=== PATIENT | male | born 1960 | race Caucasian/White ===

== ENCOUNTER 2021-03-10 21:25 | Inpatient (IN) | payer OTHER ==
[~2021-03-10] VITALS: Ht 180.3 cm; Wt 90.7 kg
--- NOTE | 2021-03-10 21:48 | NUR ---
PT BIBA. PER EMS PT HAD LEFT HIP REPLACEMENT ON SATURDAY, 2 CARDIAC STENTS PLACED & CARDIOVERSION ON SATURDAY, AND STARTED FEELING HEARTBURN/ NAUSEA/ VOMITTING TONIGHT AT 2099. PER EMS PT RECIEVED 324 ASA, 1 NITRO, 4MG OF ZOFRAN AND 300ML NS. AFTER 1 NITRO PT'S BP DROPPED FROM 120S/80S TO 80S/50S. PT BP CURRENTLY 129/76. PT RESTING IN [facility], MONITORING IN PLACE, EKG DONE, AT BEDSIDE, SILAS ALLISON AT BEDSIDE FOR EVAL, WCTM.
[2021-03-10] MEDS ORDERED: OMNIPAQUE 350 MG/ML, 100ML BOTTLE ONE (22:00)
[2021-03-10] MEDS ORDERED: SODIUM CHLORIDE FLUSH 10ML SYR IVF ONE (22:00)
[2021-03-10] MEDS ORDERED: FAMOTIDINE 20 MG/2 ML IVPush ONE (22:00)
[2021-03-10] MEDS ORDERED: MAALOX/HYOSCYAMINE/LIDOCAINE 45 ML BTL PO ONE (22:00)
[2021-03-10] MEDS ORDERED: PROMETHAZINE 25 MG/ML, 1ML IM ONE (22:00)
[2021-03-10] MEDS ORDERED: FAMOTIDINE 20 MG/2 ML ONE (22:08)
[2021-03-10] MEDS ORDERED: PROMETHAZINE 25 MG/ML, 1ML ONE (22:08)
[2021-03-10] MEDS ORDERED: MAALOX/HYOSCYAMINE/LIDOCAINE 45 ML BTL ONE (22:08)
[2021-03-10 22:16] LABS: BASOPHILS % (AUTO) 1 % (0-1); EOSINOPHILS % (AUTO) 1 % (1-7); LYMPHOCYTES % (AUTO) 12 % (22-44); MEAN CORPUSCULAR HEMOGLOBIN 30.3 pg (27.5-34.5); MEAN CORPUSCULAR HGB CONC 34.5 g/dL (33.2-36.2); MEAN PLATELET VOLUME 7.1 fL (7.4-10.4); MONOCYTES % (AUTO) 9 % (2-9); NEUTROPHILS % (AUTO) 78 % (42-75); PLATELET COUNT 349 x10^3/uL (130-400); RED BLOOD COUNT 3.46 x10^6/uL (4.38-5.82); RED CELL DISTRIBUTION WIDTH 13.2 % (9.4-14.8)
[2021-03-10 22:18] LABS: MD NO
[2021-03-10 22:23] LABS: ALANINE AMINOTRANSFERASE 49 U/L (12-78); ALBUMIN 2.8 g/dL (3.4-5.0); ANION GAP 7 mmol/L (5-15); CALCIUM 8.5 mg/dL (8.5-10.1); CHLORIDE 102 mmol/L (98-107); CREATININE 0.94 mg/dL (0.7-1.3)
[2021-03-10 22:28] LABS: ALKALINE PHOSPHATASE 57 U/L (45-117); BILIRUBIN,TOTAL 0.6 mg/dL (0.2-1.0)
[2021-03-10 23:22] LABS: INTERNATIONAL NORMALIZED RATIO 0.96 (0.93-1.1); PROTHROMBIN TIME 10.3 Seconds (9.6-11.5)
--- NOTE | 2021-03-11 01:19 | NUR ---
REPORT FROM JENNIFER URIARTE. PT REQUESTING TO SIT AT EDGE OF BED, AT BEDSIDE SITTING WITH PT. WAITING FOR ADMIT ORDERS
--- NOTE | 2021-03-11 01:33 | NUR ---
PT UP TO STANDING SCALE, WEIGHT 89 KG. PHARMACY AWARE
[2021-03-11] MEDS ORDERED: ENOXAPARIN 80 MG/0.8 ML ONE (01:51)
[2021-03-11] MEDS ORDERED: ENOXAPARIN 80 MG/0.8 ML SQ ONE (02:00)
[2021-03-11] MEDS ORDERED: ENOX40SY4 SQ (02:12)
[2021-03-11] MEDS ORDERED: PRAS10TA4 PO (02:12)
[2021-03-11] MEDS ORDERED: hydrALAzine 20 MG/ML, 1ML IVPush PRN (02:30)
[2021-03-11] MEDS ORDERED: SODIUM CHLORIDE 0.9% 1,000 ML IV SCH (02:30)
[2021-03-11] MEDS ORDERED: ONDANSETRON 2MG/ML, 2ML IVPush PRN (02:30)
[2021-03-11] MEDS ORDERED: ONDANSETRON ODT 4 MG PO PRN (02:30)
[2021-03-11] MEDS ORDERED: ACETAMINOPHEN 325 MG TABLET PO PRN (02:30)
[2021-03-11] MEDS ORDERED: NITROGLYCERIN 0.4 MG BOTTLE (25 TABS) SL PRN (02:30)
[2021-03-11] MEDS ORDERED: POLYETHYLENE GLYCOL 17 GM PACKET PO PRN (02:30)
[2021-03-11] MEDS ORDERED: GABAPENTIN 300 MG CAPSULE PO SCH (02:30)
[2021-03-11] MEDS ORDERED: BISACODYL 10 MG SUPP PR PRN (02:30)
[2021-03-11] MEDS ORDERED: PROMETHAZINE 25 MG/ML, 1ML IM PRN (02:30)
[2021-03-11] MEDS ORDERED: OXYcodone IR 5MG TABLET PO PRN (02:30)
[2021-03-11 03:05] VITALS: BP 121/85
[2021-03-11] MEDS: PANTOPRAZOLE 40 MG IV IVPush SCH ×2 (03:25→14:46)
[2021-03-11] MEDS ORDERED: GABA600T7 PO (04:30)
[2021-03-11] MEDS ORDERED: METF10007 PO (04:30)
[2021-03-11] MEDS ORDERED: DIPHENHYDRAMINE 25 MG CAPSULE PO ONE (05:00)
[2021-03-11] MEDS: ASPIRIN 81 MG TABLET EC PO SCH (05:03)
[2021-03-11] MEDS: CARVEDILOL 6.25 MG TABLET PO SCH ×2 (05:04→17:58)
[2021-03-11 05:23] LABS: BASOPHILS % (AUTO) 1 % (0-1); EOSINOPHILS % (AUTO) 1 % (1-7); LYMPHOCYTES % (AUTO) 19 % (22-44); MEAN CORPUSCULAR HEMOGLOBIN 30.9 pg (27.5-34.5); MEAN CORPUSCULAR HGB CONC 34.6 g/dL (33.2-36.2); MEAN PLATELET VOLUME 7.3 fL (7.4-10.4); MONOCYTES % (AUTO) 12 % (2-9); NEUTROPHILS % (AUTO) 68 % (42-75); PLATELET COUNT 341 x10^3/uL (130-400); RED CELL DISTRIBUTION WIDTH 13.1 % (9.4-14.8)
[2021-03-11 05:27] LABS: MD NO
[2021-03-11 05:35] LABS: CHLORIDE 103 mmol/L (98-107)
[2021-03-11 05:46] LABS: ALANINE AMINOTRANSFERASE 46 U/L (12-78); ALBUMIN 2.7 g/dL (3.4-5.0); ALKALINE PHOSPHATASE 53 U/L (45-117); ANION GAP 9 mmol/L (5-15); BILIRUBIN,TOTAL 0.6 mg/dL (0.2-1.0); CALCIUM 8.4 mg/dL (8.5-10.1); CHOL/HDL RATIO 6.2; CHOLESTEROL, TOTAL 192 mg/dL (140-239); CREATININE 0.83 mg/dL (0.7-1.3); HDL CHOL % 16 % (26-37); HDL CHOLESTEROL (DIRECT) 31 mg/dL (40-60); LDL CHOLESTEROL,CALCULATED 115 mg/dL (54-169); LDL/HDL RATIO 3.7 (0.5-3.0); TOTAL PROTEIN 6.6 g/dL (6.4-8.2); TRIGLYCERIDES 229 mg/dL (50-200); VLDL CHOLESTEROL 46 mg/dL (0-25)
[2021-03-11] MEDS ORDERED: ASPIRIN 325 MG TABLET EC PO SCH (06:00)
[2021-03-11] MEDS: INSULIN LISPRO 100 UNITS/ML, PEN SQ-INSULIN SCH ×5 (07:00→21:03)
[2021-03-11 07:47] VITALS: BP 121/77
[2021-03-11] MEDS: PRASUGREL 10 MG TABLET PO SCH (09:55)
[2021-03-11] MEDS: GABAPENTIN 400 MG CAPSULE PO SCH ×3 (09:56→21:02)
[2021-03-11] MEDS: SENNA/DOCUSATE TABLET PO SCH (09:56)
[2021-03-11] MEDS ORDERED: LISI2.5T PO (10:03)
[2021-03-11] MEDS: LISINOPRIL 5 MG TABLET PO SCH (10:30)
[2021-03-11 14:35] VITALS: BP 106/65
[2021-03-11 19:20] VITALS: BP 120/74
[2021-03-11] MEDS ORDERED: DIPHENHYDRAMINE 25 MG CAPSULE PO PRN (21:00)
[2021-03-11] MEDS: ENOXAPARIN 30 MG/0.3 ML SQ SCH (21:00)
[2021-03-11] MEDS ORDERED: DIPHENHYDRAMINE 25 MG CAPSULE ONE (21:00)
[2021-03-11] MEDS ORDERED: ATORVASTATIN 40 MG TABLET PO SCH (21:00)
[2021-03-12] MEDS: PANTOPRAZOLE 40 MG IV IVPush SCH (01:42)
[2021-03-12 02:00] VITALS: BP 106/67
[2021-03-12] MEDS: ASPIRIN 81 MG TABLET EC PO SCH (06:24)
[2021-03-12] MEDS: CARVEDILOL 6.25 MG TABLET PO SCH (06:25)
[2021-03-12 08:02] VITALS: BP 106/69
[2021-03-12] MEDS: INSULIN LISPRO 100 UNITS/ML, PEN SQ-INSULIN SCH ×2 (08:55→11:45)
[2021-03-12] MEDS: ENOXAPARIN 30 MG/0.3 ML SQ SCH (08:57)
[2021-03-12] MEDS: SENNA/DOCUSATE TABLET PO SCH (08:57)
[2021-03-12] MEDS: LISINOPRIL 5 MG TABLET PO SCH (08:58)
[2021-03-12] MEDS: PRASUGREL 10 MG TABLET PO SCH (08:58)
[2021-03-12] MEDS: GABAPENTIN 400 MG CAPSULE PO SCH (08:58)
[2021-03-12] MEDS ORDERED: CARV6.2512 PO (12:28)
[2021-03-12] MEDS ORDERED: ASPI81TA45 PO (12:28)
[2021-03-12] MEDS ORDERED: ATOR40TA78 PO (12:28)
== END 2021-03-12 14:35 | disposition home or self-care (01) | DRG 282 ==
LOC: EDBD 21:25 → ED 03-11 01:30 → EDIP 03-11 02:06 → 5SO 03-11 02:59 → DCLOUNGE 03-12 14:27
PROVIDERS: ADMIT Internal Medicine; ATTEND Family Medicine
DX: I21.4 Non-ST elevation (NSTEMI) myocardial infarction (principal); E11.9 Type 2 diabetes mellitus without complications; E78.5 Hyperlipidemia, unspecified; G89.29 Other chronic pain; M54.5 Low back pain; I10 Essential (primary) hypertension; I25.10 Atherosclerotic heart disease of native coronary artery without angina pectoris; I45.10 Unspecified right bundle-branch block; I48.91 Unspecified atrial fibrillation; K21.9 Gastro-esophageal reflux disease without esophagitis; K59.00 Constipation, unspecified; Z79.01 Long term (current) use of anticoagulants; Z79.82 Long term (current) use of aspirin; Z87.891 Personal history of nicotine dependence; Z95.5 Presence of coronary angioplasty implant and graft; Z96.642 Presence of left artificial hip joint; Z88.5 Allergy status to narcotic agent; Z79.899 Other long term (current) drug therapy
CPT/HCPCS: 36415; 71045; 71275; 80053; 80061; 82962; 83036; 83690; 83735; 83880; 84100; 84443; 84484; 85025; 85610; 85730; 93005; 93306; 96372; 96374; G0378; J1650; J2550; Q9967; C9113; J1815; J7030; Q0163